=== PATIENT | female | born 1980 | race Two or more races ===

== ENCOUNTER 2023-11-18 00:41 | Inpatient (IN) | payer OTHER ==
[~2023-11-18] VITALS: Ht 162.6 cm; Wt 55.8 kg
[2023-11-18] MEDS ORDERED: MEPERIDINE HCL/PF 50 MG/ML VIAL IM STA (02:07)
[2023-11-18] MEDS ORDERED: CEFTRIAXONE SODIUM 1,000 MG VIAL IV STA (02:07)
[2023-11-18] MEDS ORDERED: PROMETHAZINE HCL 50 MG/ML AMPUL IM STA (02:07)
[2023-11-18] MEDS ORDERED: CEFTRIAXONE SODIUM 1,000 MG VIAL ONE (02:14)
[2023-11-18] MEDS ORDERED: RINGERS SOLUTION,LACTATED 1,000 ML IV ONE (02:15)
[2023-11-18] MEDS ORDERED: PROMETHAZINE HCL 50 MG/ML AMPUL IM ONE (02:20)
[2023-11-18 02:31] LABS: HEMATOCRIT 32.8 % (36.0-45.00); HEMOGLOBIN 11.1 g/dL (12.0-15.00); MEAN CELL VOLUME 85.4 fL (80.00-100.00); MEAN CORPUSCULAR HEMOGLOBIN 28.8 pg (27.00-32.0); MEAN CORPUSCULAR HGB CONC 33.7 g/dl (32.0-36.0); PLATELET COUNT 405 K/uL (150-450); RED BLOOD COUNT 3.85 M/uL (4.00-6.00); RED CELL DISTRIBUTION WIDTH 13.6 % (11.5-14.5)
[2023-11-18 03:04] LABS: URINE APPEARANCE Cloudy; URINE BILIRRUBIN Small (NEGATIVE); URINE BLOOD Negative; URINE COLOR Dark Yellow; URINE GLUCOSE Negative (NEGATIVE); URINE LEUKOCYTE Small; URINE NITRATE Negative; URINE PROTEIN 30 (NEGATIVE)
[2023-11-18 03:07] LABS: URINE BACTERIA 35.2 uL (0.0-1933); URINE EPITHELIAL CELLS 66.4 uL (0.0-38.8); URINE RBC 67.9 uL (0.0-20.8); URINE WBC 27.2 uL (0.0-23.2)
[2023-11-18 03:07] LABS: INR 1.05; PARTIAL THROMBOPLASTIN TIME 29.9 SECONDS (22.0-34.0); PROTHROMBIN TIME 11.4 SECONDS (9.0-11.5)
[2023-11-18 03:13] LABS: BILIRUBIN TOTAL 0.54 mg/dL (0.3-1.2); CALCIUM 9.3 mg/dL (8.5-10.1); CREATININE SERUM 0.59 mg/dL (0.55-1.02); GFR 111.78; GLOBULINA 4.6 G/DL (2.4-3.5); POTASSIUM 3.41 mEq/L (3.5-5.1); TOTAL PROTEIN 7.6 gm/dL (6.4-8.2)
[2023-11-18 03:28] LABS: URINE CAST 0.45 uL (0.0-1.40); URINE KETONE 40 (NEGATIVE)
[2023-11-18 03:35] LABS: URINE MUCUS MODERATE
[2023-11-18] MEDS ORDERED: CEFOXITIN SODIUM 2,000 MG in DEXTROSE 5 % IN WATER 100 ML IV SCH ×2 (07:19→20:00)
[2023-11-18] MEDS ORDERED: KETOROLAC TROMETHAMINE 60 MG VIAL IM STA (07:19)
[2023-11-18 07:53] VITALS: BP 114/76; O2SAT 100
[2023-11-18] MEDS ORDERED: KETOROLAC TROMETHAMINE 60 MG VIAL IM ONE (07:58)
[2023-11-18] MEDS ORDERED: METRONIDAZOLE/SODIUM CHLORIDE 500 MG/100 ML PIGGYBACK IV ONE (07:58)
[2023-11-18] MEDS ORDERED: FAMOTIDINE/PF 20 MG/2 ML VIAL ONE (07:59)
[2023-11-18] MEDS ORDERED: IBUprofen 800 MG TABLET PO SCH (08:00)
[2023-11-18 08:04] VITALS: BP 114/76
[2023-11-18] MEDS ORDERED: MetFORMIN HCL 500 MG TABLET PO SCH (09:00)
[2023-11-18] MEDS ORDERED: DOXYCYCLINE HYCLATE 100 MG in 0.9 % SODIUM CHLORIDE 250 ML IV SCH (09:00)
[2023-11-18] MEDS ORDERED: FAMOTIDINE/PF 20 MG in 0.9 % SODIUM CHLORIDE 100 ML IV SCH (09:00)
[2023-11-18] MEDS ORDERED: METRONIDAZOLE/SODIUM CHLORIDE 100 ML IV SCH ×2 (09:00→21:00)
[2023-11-18 09:20] LABS: INR 1.05; PARTIAL THROMBOPLASTIN TIME 29.9 SECONDS (22.0-34.0); PROTHROMBIN TIME 11.4 SECONDS (9.0-11.5)
[2023-11-18 09:38] LABS: C-REACTIVE PROTEIN 11.6 MG/DL (0.00-0.29)
[2023-11-18 10:25] VITALS: BP 113/78
[2023-11-18 15:37] VITALS: BP 116/75
[2023-11-18] MEDS ORDERED: LACTOBACILLUS ACIDOPHILUS 1 CAP CAP PO SCH (17:00)
[2023-11-18] MEDS ORDERED: SODIUM CL 0.9% 100 ML IV.SOLN IV ONE (21:44)
[2023-11-19 00:55] VITALS: BP 104/70
[2023-11-19 06:22] VITALS: BP 101/66
[2023-11-19 08:00] VITALS: BP 118/85
[2023-11-19] MEDS ORDERED: CEFOXITIN SODIUM 2,000 MG VIAL IV ONE (08:23)
[2023-11-19] MEDS ORDERED: FAMOTIDINE/PF 20 MG/2 ML VIAL ONE ×2 (08:24→13:28)
[2023-11-19] MEDS ORDERED: DOXYCYCLINE HYCLATE 100 MG CAPSULE PO SCH (10:30)
[2023-11-19] MEDS ORDERED: MetFORMIN HCL 500 MG TABLET PO NR (10:45)
[2023-11-19 16:30] VITALS: BP 124/84
[2023-11-19] MEDS ORDERED: CEFTRIAXONE SODIUM 2,000 MG VIAL IV SCH (17:00)
[2023-11-20 03:03] VITALS: BP 112/70
[2023-11-20 08:00] VITALS: BP 124/83
[2023-11-20] MEDS ORDERED: MetFORMIN HCL 500 MG TABLET PO SCH (09:00)
[2023-11-20] MEDS ORDERED: INSULIN LISPRO 1,000 UNIT/10 ML UNITS SUBCUTANEO PRN (12:45)
[2023-11-20] MEDS ORDERED: ACETAMINOPHEN 500 MG GEL..CAP PO PRN (12:45)
[2023-11-20] MEDS ORDERED: DEXTROSE 50 % IN WATER 0.5 G/ML DISP.SYRIN IV PRN (12:45)
[2023-11-20] MEDS ORDERED: RINGERS SOLUTION,LACTATED 1,000 ML IV.SOLN ONE (13:48)
[2023-11-20 14:00] VITALS: BP 131/88
[2023-11-20 16:19] VITALS: BP 140/70
[2023-11-20] MEDS ORDERED: ONDANSETRON HCL 4 MG in DEXTROSE 5 % IN WATER 50 ML IV SCH (17:00)
[2023-11-20] MEDS ORDERED: DOXYCYCLINE HYCLATE 100MG IV SCH (21:00)
[2023-11-20 21:05] LABS: chla t Negative (Negative); neiss Negative (Negative)
[2023-11-20 21:11] VITALS: BP 138/80; O2SAT 98
[2023-11-21 01:56] VITALS: BP 100/66
[2023-11-21] MEDS ORDERED: ONDANSETRON HCL 2 MG/ML VIAL ONE (07:24)
[2023-11-21 08:23] LABS: HEMATOCRIT 29.8 % (36.0-45.00); HEMOGLOBIN 10.4 g/dL (12.0-15.00); MEAN CELL VOLUME 84.5 fL (80.00-100.00); MEAN CORPUSCULAR HEMOGLOBIN 29.4 pg (27.00-32.0); MEAN CORPUSCULAR HGB CONC 34.7 g/dl (32.0-36.0); PLATELET COUNT 439 K/uL (150-450); RED BLOOD COUNT 3.53 M/uL (4.00-6.00); RED CELL DISTRIBUTION WIDTH 13.5 % (11.5-14.5)
[2023-11-21 08:54] LABS: COL EPI 105 SECONDS (82-175)
[2023-11-21 08:57] LABS: ALBUMIN 2.8 gm/dL (3.4-5.0); ALKALINE PHOSPHATASE 89 U/L (50-136); ALT/SGPT 53 U/L (12-78); ANION GAP 9 (10.0-20.0); AST/SGOT 16 U/L (15-37); BILIRUBIN TOTAL 0.22 mg/dL (0.3-1.2); BILIRUBIN,CONJUGATED < 0.10 mg/dL (0.0-0.2); BILIRUBIN,UNCONJUGATED 0.12 mg/dL (0.0-0.6); BLOOD UREA NITROGEN 11 mg/dL (7-18); BUN CREA RATIO 21 (7.0-25.0); CARBON DIOXIDE 28 mEq/L (21-32); CHLORIDE 109 mmol/L (98-107); CREATININE SERUM 0.52 mg/dL (0.55-1.02); GFR 129.32; GLUCOSE FASTING 87 mg/dL (65-100); OSMOLALITY SERUM 282 MOSM/KG (275-295); PHOSPHOROUS 4.8 mg/dL (2.5-4.9); POTASSIUM 4.38 mEq/L (3.5-5.1); SODIUM 142 mmol/L (136-145); TOTAL PROTEIN 6.6 gm/dL (6.4-8.2)
[2023-11-21 09:00] VITALS: BP 129/86
[2023-11-21 17:00] VITALS: BP 125/88
[2023-11-22 01:31] VITALS: BP 126/86
[2023-11-22 05:55] VITALS: BP 124/80
[2023-11-22 08:30] LABS: HEMATOCRIT 31.7 % (36.0-45.00); HEMOGLOBIN 10.8 g/dL (12.0-15.00); MEAN CORPUSCULAR HEMOGLOBIN 28.5 pg (27.00-32.0); PLATELET COUNT 488 K/uL (150-450); RED BLOOD COUNT 3.77 M/uL (4.00-6.00); RED CELL DISTRIBUTION WIDTH 13.2 % (11.5-14.5)
[2023-11-22 08:50] LABS: CALCIUM 8.9 mg/dL (8.5-10.1); CREATININE SERUM 0.53 mg/dL (0.55-1.02); GFR 126.51; PHOSPHOROUS 3.7 mg/dL (2.5-4.9); POTASSIUM 4.19 mEq/L (3.5-5.1)
[2023-11-22] MEDS ORDERED: MORPHINE SULFATE 4 MG/ML VIAL IV STA (09:45)
[2023-11-22 09:53] VITALS: BP 126/81
[2023-11-22 15:42] VITALS: BP 141/96
[2023-11-22] MEDS ORDERED: ONDANSETRON HCL 2 MG/ML VIAL ONE (17:10)
[2023-11-23 01:41] VITALS: BP 111/68
[2023-11-23 07:52] LABS: CALCIUM 9.2 mg/dL (8.5-10.1); CREATININE SERUM 0.52 mg/dL (0.55-1.02); GFR 129.32; POTASSIUM 4.33 mEq/L (3.5-5.1)
[2023-11-23 08:00] VITALS: BP 135/89
[2023-11-23] MEDS ORDERED: HEMOSTATIC MATRIX 1 KIT KIT TOP ONE (14:15)
[2023-11-23] MEDS ORDERED: PROMETHAZINE HCL 25 MG/ML AMPUL IV SCH (16:00)
[2023-11-23] MEDS ORDERED: MEPERIDINE HCL/PF 50 MG/ML VIAL IV SCH (17:00)
[2023-11-23 18:20] VITALS: BP 129/85
[2023-11-23] MEDS ORDERED: KETOROLAC TROMETHAMINE 30 MG VIAL IV STA (19:49)
[2023-11-23 21:27] VITALS: BP 140/89
[2023-11-23 23:13] VITALS: O2SAT 100
[2023-11-24 00:03] VITALS: BP 140/80
[2023-11-24 04:30] VITALS: BP 133/86
[2023-11-24] MEDS ORDERED: SIMETHICONE 125 MG CAPSULE PO SCH (05:00)
[2023-11-24] MEDS ORDERED: IBUprofen 800 MG TABLET PO SCH (06:00)
[2023-11-24 06:54] LABS: HEMATOCRIT 29.9 % (36.0-45.00); HEMOGLOBIN 10.4 g/dL (12.0-15.00); MEAN CELL VOLUME 82.6 fL (80.00-100.00); MEAN CORPUSCULAR HEMOGLOBIN 28.6 pg (27.00-32.0); MEAN CORPUSCULAR HGB CONC 34.6 g/dl (32.0-36.0); PLATELET COUNT 551 K/uL (150-450); RED BLOOD COUNT 3.62 M/uL (4.00-6.00); RED CELL DISTRIBUTION WIDTH 13.7 % (11.5-14.5)
[2023-11-24] MEDS ORDERED: DEXTROSE 50 % IN WATER 0.5 G/ML DISP.SYRIN IV PRN (07:00)
[2023-11-24] MEDS ORDERED: INSULIN LISPRO 1,000 UNIT/10 ML UNITS SUBCUTANEO PRN (07:00)
[2023-11-24 07:15] LABS: CALCIUM 8.4 mg/dL (8.5-10.1); CREATININE SERUM 0.52 mg/dL (0.55-1.02); GFR 129.32; MAGNESIUM 1.9 mg/dL (1.8-2.4); PHOSPHOROUS 4.2 mg/dL (2.5-4.9); POTASSIUM 4.42 mEq/L (3.5-5.1)
[2023-11-24 08:32] VITALS: BP 135/82
[2023-11-24] MEDS ORDERED: GABAPENTIN 300 MG CAPSULE PO SCH (09:00)
[2023-11-24] MEDS ORDERED: POLYETHYLENE GLYCOL 3350 17 GM BLIST.PACK PO SCH (09:00)
[2023-11-24 13:45] VITALS: BP 140/85
[2023-11-24 17:17] VITALS: BP 142/85
[2023-11-24 21:04] VITALS: BP 128/85
[2023-11-25 00:15] VITALS: BP 113/75
[2023-11-25 04:30] VITALS: BP 107/71
[2023-11-25] MEDS ORDERED: MAGNESIUM HYDROXIDE 30 ML BLIST.PACK PO STA (07:13)
[2023-11-25] MEDS ORDERED: MINERAL OIL 30 ML BLIST.PACK PO STA (07:14)
[2023-11-25] MEDS ORDERED: BISACODYL 10 MG/SUPP.RECT SUPP.RECT RECTAL STA (07:14)
[2023-11-25 08:17] VITALS: BP 129/87
[2023-11-25] MEDS ORDERED: HYOSCYAMINE SULFATE 0.125 MG TAB.SUBL SL SCH (09:00)
[2023-11-25] MEDS ORDERED: METOCLOPRAMIDE HCL 10 MG TABLET PO SCH (09:00)
[2023-11-25 09:40] LABS: HEMATOCRIT 27.9 % (36.0-45.00); HEMOGLOBIN 9.9 g/dL (12.0-15.00); MEAN CELL VOLUME 82.6 fL (80.00-100.00); MEAN CORPUSCULAR HEMOGLOBIN 29.3 pg (27.00-32.0); MEAN CORPUSCULAR HGB CONC 35.5 g/dl (32.0-36.0); PLATELET COUNT 492 K/uL (150-450); RED BLOOD COUNT 3.37 M/uL (4.00-6.00); RED CELL DISTRIBUTION WIDTH 13.5 % (11.5-14.5)
[2023-11-25 10:45] LABS: CALCIUM 8.7 mg/dL (8.5-10.1); CREATININE SERUM 0.45 mg/dL (0.55-1.02); GFR 152.8; MAGNESIUM 2.1 mg/dL (1.8-2.4); PHOSPHOROUS 2.1 mg/dL (2.5-4.9); POTASSIUM 4.32 mEq/L (3.5-5.1)
[2023-11-25] MEDS ORDERED: SOD FERRIC GLUC COMPLX/SUCROSE 62.5 MG in 0.9 % SODIUM CHLORIDE 50 ML IV SCH (12:19)
[2023-11-25] MEDS ORDERED: Cyanocobalamin/Mecobalamin 1 TAB.SL SL SCH (12:19)
[2023-11-25] MEDS ORDERED: POTASSIUM PHOS,M-BASIC-D-BASIC 3 MM/ML VIAL IV NR (12:30)
[2023-11-25 17:53] VITALS: BP 145/84
[2023-11-26] VITALS: BP 108/70
[2023-11-26 08:42] VITALS: BP 119/80
[2023-11-26 16:00] VITALS: BP 133/83
[2023-11-26] MEDS ORDERED: POLYETHYLENE GLYCOL 3350 17 GM BLIST.PACK PO SCH (21:00)
[2023-11-27] VITALS: BP 1125/76
[2023-11-27 08:33] VITALS: BP 119/71
[2023-11-27 13:08] VITALS: BP 130/83
[2023-11-27 17:40] VITALS: BP 135/81
[2023-11-28 01:00] VITALS: BP 117/72
[2023-11-28] MEDS ORDERED: GABAPENTIN300 MG PO (07:32)
[2023-11-28] MEDS ORDERED: IBUPROFEN800 MG PO (07:32)
[2023-11-28] MEDS ORDERED: POLY119PG PO (07:32)
[2023-11-28] MEDS ORDERED: SIMETHICONE125 M1 PO (07:32)
[2023-11-28] MEDS ORDERED: INTESTINEX680 M1 PO (07:32)
[2023-11-28 07:33] VITALS: BP 119/80
[2023-11-28] MEDS ORDERED: MORGIDOX100 MG PO (07:35)
== END 2023-11-28 10:35 | disposition home or self-care (01) | DRG 743 ==
LOC: ER 00:41 → OB/GYN 07:48 → SEC-K 07:48 → OB/GYN 08:38
PROVIDERS: General Practice; Internal Medicine Geriatric Medicine; Surgery; ADMIT Obstetrics & Gynecology; ATTEND Obstetrics & Gynecology
PROC: BU4CZZZ Ultrasonography of Uterus and Ovaries (ICD-10-PCS; 2023-11-18)
PROC: BW21ZZZ Computerized Tomography (CT Scan) of Abdomen and Pelvis (ICD-10-PCS; 2023-11-22)
PROC: 0UT70ZZ Resection of Bilateral Fallopian Tubes, Open Approach (ICD-10-PCS; 2023-11-23)
PROC: 0T788DZ Dilation of Bilateral Ureters with Intraluminal Device, Via Natural or Artificial Opening Endoscopic (ICD-10-PCS; 2023-11-23)
PROC: 0UT20ZZ Resection of Bilateral Ovaries, Open Approach (ICD-10-PCS; principal; 2023-11-23 13:15)
PROC: 0UT90ZZ Resection of Uterus, Open Approach (ICD-10-PCS; 2023-11-23 13:15)
DX: D25.1 Intramural leiomyoma of uterus (principal); N80.121 Deep endometriosis of right ovary; N80.103 Endometriosis of bilateral ovaries, unspecified depth; N70.93 Salpingitis and oophoritis, unspecified; N73.9 Female pelvic inflammatory disease, unspecified; N72 Inflammatory disease of cervix uteri; Z20.822 Contact with and (suspected) exposure to COVID-19; D64.9 Anemia, unspecified; E11.9 Type 2 diabetes mellitus without complications; N83.8 Other noninflammatory disorders of ovary, fallopian tube and broad ligament; N94.89 Other specified conditions associated with female genital organs and menstrual cycle; R10.2 Pelvic and perineal pain